=== PATIENT | male | born 1925 | race Caucasian/White ===

== ENCOUNTER → 2016-10-04 | Outpatient (CLI) | payer OTHER ==
[~2016-10-04] MED LIST: ALL300 PO; ALUM-80 PO; CIPR-255 PO; DOCU-94 PO; FLM4 PO; ISOS30TA35 PO; LEVO25TA5 PO; MOML PO; NTRSL3 UT; NUTR-7 PO; ONDA8TAB7 PO; PANT40TA2 PO; POLY335019 PO; PRS5 PO; PRVC/20 PO; SENN1TAB65 PO; TPRSR/50 PO; XRL15 PO
== END | disposition home or self-care (01) ==
LOC: C.LABSPEC 11:28
PROVIDERS: ATTEND Urology
DX: R33.9 Retention of urine, unspecified (principal)